=== PATIENT | female | born 1980 | race Caucasian/White ===

== ENCOUNTER → 2017-01-09 | Outpatient (CLI) | payer BC ==
--- NOTE | 2017-01-09 18:00 | Diagnostic Imaging Report ---
INDICATION: Dyspareunia, painful periods. TECHNIQUE: Multiple real time armstrong scale sonographic images were obtained of the pelvis transabdominally and endovaginally. CORRELATION STUDY: None FINDINGS: UTERUS/ENDOMETRIUM: Uterus measures 7.9 x 4.2 x 3.6 cm. Area of heterogeneity likely reflective of fibroid along the left aspect at 2.1 x 2.9 x 2.2 cm in size. The endometrium is normal in thickness measuring 10 mm. RIGHT OVARY: Not visualized, largely obscured by overlying bowel gas. LEFT OVARY: 3.6 x 3.3 x 2.6 cm. There are several cysts and/or follicles of the left ovary. Vascular flow demonstrated in left ovary. No significant free pelvic fluid. IMPRESSION: 1. Probable 3 cm fibroid of the uterus. 2. Nonvisualization of right ovary, largely obscured. 3. Multiple cysts and/or follicles of the left ovary. These are fairly prominent in overall number. Dictated by: Dictated on workstation # [id number]
== END ==
LOC: RAD 17:11
PROVIDERS: ATTEND Obstetrics & Gynecology
DX: N94.5 Secondary dysmenorrhea (principal); N94.19 Other specified dyspareunia
CPT/HCPCS: 76830; 76856

== ENCOUNTER → 2018-05-29 | Outpatient (CLI) | payer BC ==
--- NOTE | 2018-05-29 18:28 | Diagnostic Imaging Report ---
Clinical indication: Patient is status post fall with pain to lateral side of ankle, medial side of right foot, and pain involving the great toe. Exams: 1: X-ray of the right toes, 3 views. 2: X-ray of the right ankle, 3 views. 3: X-ray of the right foot, 3 views. Comparison: None. Findings: X-ray of the right foot and right ankle shows no acute fracture or dislocation. There is no significant bone or joint abnormality. The ankle mortise and syndesmotic joint is unremarkable. X-rays of the right toes show no acute fracture or dislocation. There is no significant bone or joint abnormality. Impression: Unremarkable x-ray of the right foot, right ankle, and right toes with no acute fracture or dislocation. Dictated by: Dictated on workstation # [id number]
== END ==
LOC: RAD 17:14
PROVIDERS: ATTEND Family Medicine
DX: M79.671 Pain in right foot (principal); M25.571 Pain in right ankle and joints of right foot; M79.674 Pain in right toe(s); W19.XXXA Unspecified fall, initial encounter
CPT/HCPCS: 73610; 73630; 73660

== ENCOUNTER → 2019-04-07 | Outpatient (CLI) | payer BC ==
--- NOTE | 2019-04-07 18:16 | Diagnostic Imaging Report ---
INDICATION: Injury to the right third finger. TIME OF EXAM: 05:43 p.m. FINDINGS: Three views of the right third finger were obtained. Alignment is normal. There is a tiny osseous density adjacent to the tuft of the distal phalanx of the third finger, indeterminate. No other suspicious abnormalities are seen. Joint spaces are maintained. IMPRESSION: There is a tiny osseous density adjacent to the tuft of the third finger, chronicity indeterminate. Correlation to pain at the tip of the third finger is recommended. Remainder of the study is unremarkable. Dictated by: Dictated on workstation # [id number]
== END ==
LOC: RAD 17:29
PROVIDERS: ATTEND Nurse Practitioner Family
DX: S60.031A Contusion of right middle finger without damage to nail, initial encounter (principal)
CPT/HCPCS: 73140

== ENCOUNTER → 2021-12-25 | Outpatient (CLI) | payer BC ==
--- NOTE | 2021-12-25 13:13 | Diagnostic Imaging Report ---
INDICATION: Left knee pain. FINDINGS: Three views of the left knee demonstrate minimal degenerative changes in all 3 compartments. There is no fracture, dislocation, or joint effusion. IMPRESSION: Minimal degenerative joint disease. Dictated by: Dictated on workstation # [id number]
--- NOTE | 2021-12-25 16:31 | Diagnostic Imaging Report ---
INDICATION: Routine screening. COMPARISON: No mammograms are available for comparison. This is a baseline study. TECHNIQUE: 2D and 3D bilateral screening mammography was performed with CAD. FINDINGS: Both breasts are heterogeneously dense, limiting the sensitivity of mammography. No mass or malignant-appearing microcalcifications are identified. The axillae are unremarkable. IMPRESSION: No mammographic features suspicious for malignancy are identified. ACR BI-RADS Category 1: Negative. Result letter will be mailed to the patient. Note: At least 10% of breast cancer is not imaged by mammography. Dictated by: Dictated on workstation # [id number]
== END ==
LOC: RAD 11:15
PROVIDERS: ATTEND Nurse Practitioner
DX: Z12.31 Encounter for screening mammogram for malignant neoplasm of breast (principal); M17.12 Unilateral primary osteoarthritis, left knee
CPT/HCPCS: 73562; 77063; 77067